=== PATIENT | female | born 1945 | race Caucasian/White ===

== ENCOUNTER 2018-06-20 09:46 | Emergency (ER) | payer OTHER ==
--- NOTE | 2018-06-20 11:07 | EDPHY ---
H & P Time Seen by Provider: 06/20/18 10:50 HPI/ROS: Chief complaint. Knee injury HPI. 73-year-old female visiting from [place]. She had a trip and fall on steps 2 days ago. She fell forward and struck her left knee on the steps. It is bruised and swollen. It has continued to hurt to walk. No hip or ankle pain. She has had chronic left knee pain though continues to hike. She did strike her right arm and sustained an abrasion to the right arm but has good range of motion. Did not strike her head or lose consciousness. No neck pain ROS Constitutional. no fever/chills, no weakness Eyes. no problems with vision ENT. no sore throat, no nasal drainage Cardiovascular. no chest pain Respiratory. no shortness of breath, no cough Abdominal. no abdominal pain, no nausea/vomiting, no diarrhea . no problems urinating MS. Left knee pain and bruising Skin. Abrasion right forearm Lymph. no swollen glands Neuro. no headache, no dizziness, no difficulty walking or with speech Past Medical/Surgical History: Cardiac stents, CVA Social History: , nonsmoker, no alcohol Physical Exam: General Appearance: Alert pleasant well-developed female mild distress vital signs are stable Eyes: Pupils equal and round no pallor or injection. ENT, Mouth: Mucous membranes are moist. Respiratory: There are no retractions, lungs are clear to auscultation. Cardiovascular: Regular rate and rhythm. Gastrointestinal: Abdomen is soft and nontender, no masses, bowel sounds normal. Neurological: Awake and alert, sensory and motor exams grossly normal. Skin: Warm and dry, no rashes. Musculoskeletal: Neck is supple nontender. Extremities left knee shows bruising to the anterior aspect of the knee. She is tender with palpation of the patella. Mild lateral joint line tenderness. None medially. No instability to stress. Psychiatric: Patient is oriented X 3, there is no agitation. Constitutional: Initial Vital Signs Temperature (C) 37 C 06/20/18 09:47 Heart Rate 65 06/20/18 09:47 Respiratory Rate 18 06/20/18 09:47 Blood Pressure 140/79 H 06/20/18 09:47 O2 Sat (%) 96 06/20/18 09:47 O2 Delivery Mode Room Air Allergies/Adverse Reactions: No Known Allergies Allergy (Unverified 06/20/18 09:52) Home Medications: Medication Instructions Recorded Aspirin EC [Aspirin EC 81 mg (*)] 81 mg PO DAILY 06/20/18 Atorvastatin Calcium [Lipitor 40 40 mg PO 06/20/18 mg (*)] Clopidogrel Bisulfate [Clopidogrel] 75 mg PO 06/20/18 Lisinopril [Zestril 20 mg (*)] 20 mg PO 06/20/18 Pantoprazole Sodium [Protonix 40mg 40 mg PO 06/20/18 (*)] Medical Decision Making - Diagnostics Imaging Results: X-rays reviewed by me show no evidence of fracture or dislocation. Severe DJD of the knee is present Procedures: Knee immobilizer is placed. knee immobilizer placement is checked by me and shows good anatomic position and distal motor vascular sensitivity to be intact ED Course/Re-evaluation: On re-evaluation 11:00 a.m. Patient is stable. The patient, her , and I discussed imaging study results, treatment plan including criteria for return importance of follow-up further evaluation. She expresses understanding and agreement. Patient lives in [place]. She will wear the knee immobilizer for 5-7 days and follow up with her regular PCP when she returns to [place] Differential Diagnosis: I considered patella fracture, other fracture and dislocation. I believe this is knee contusion Departure - Departure Disposition: Home, Routine, Self-Care Clinical Impression: Knee contusion Qualifiers: Encounter type: initial encounter Laterality: left Qualified Code(s): S80.02XA - Contusion of left knee, initial encounter Condition: Good Instructions: Contusion in Adults (ED) Additional Instructions: Knee immobilizer on for 5-7 days when ambulatory. You may remove it for sleep, shower, changing clothes. Tylenol 650 mg every 4-6 hours as needed for discomfort. Return for worsening symptoms. Recheck by your regular physician upon return to [place] Referrals: NONE *PRIMARY CARE P,. [Primary Care Provider] - As per Instructions
[2018-06-20 11:23] VITALS: BP 140/71
== END 2018-06-20 11:21 | disposition home or self-care (01) ==
DX: S80.02XA Contusion of left knee, initial encounter (principal); S40.811A Abrasion of right upper arm, initial encounter; W10.8XXA Fall (on) (from) other stairs and steps, initial encounter
CPT/HCPCS: 73564; 99283; L1830